=== PATIENT | male | born 1975 | race Caucasian/White ===

== ENCOUNTER → 2017-03-13 | Outpatient (CLI) | payer OTHER ==
[~2017-03-13] MED LIST: ALEVE220 MG PO; KEFLEX 500MG.500 MG PO; NOMEDS XX; SEPTRA DS 800 M1 TAB PO
[2017-03-13 11:37] LABS: LYMPH % 24.3 % (10-50)
[2017-03-13 11:45] LABS: HEMOGLOBIN 15.7 g/dL (14.1-18.0)
[2017-03-13 13:41] LABS: BUN 13 mg/dL (7-18)
[2017-03-13 13:42] LABS: GFR (ESTIMATED) 107 ML/MIN (>60)
[2017-03-14 08:47] LABS: Vitamin D, 25-Hydroxy 17.1 ng/mL (30.0-100.0)
[2017-03-14 10:39] LABS: Folate (Folic Acid) 12.6 ng/mL (>3.0)
[2017-03-15 14:40] LABS: Vit. B1, Whole Blood 175.1 nmol/L (66.5-200.0)
[2017-03-15 16:36] LABS: Cotinine 1474.7 ng/mL (.); Nicotine 1702.2 ng/mL (.)
== END ==
LOC: LAB 10:59
PROVIDERS: Physician Assistant
DX: E11.9 Type 2 diabetes mellitus without complications (principal); E66.01 Morbid (severe) obesity due to excess calories; R12 Heartburn
CPT/HCPCS: G0480